=== PATIENT | male | born 1975 | race Caucasian/White ===

== ENCOUNTER → 2019-01-30 | Outpatient (CLI) | payer BC, OTHER | LOC: EDBD → MRI 11:24 | DX: S82.492A Other fracture of shaft of left fibula, initial encounter for closed fracture (principal); M25.462 Effusion, left knee; M71.22 Synovial cyst of popliteal space [Baker], left knee; X58.XXXA Exposure to other specified factors, initial encounter; Y93.89 Activity, other specified; Y92.89 Other specified places as the place of occurrence of the external cause; Y99.8 Other external cause status ==